=== PATIENT | female | born 1970 | race Caucasian/White ===

== ENCOUNTER → 2016-12-29 | Outpatient (CLI) | payer BC ==
[~2016-12-29] MED LIST: ASPIRIN CHILDRE81 MG PO; CIPRO500 MG PO; ENBREL50 MG/ML SC; ESTROVEN 155 M155 MG PO; IBU800 MG PO; MIRALAX POWDER255 GM PO; PRAVACHOL80 M1 PO; PROTONIX TR40 M1 PO; PROZAC40 M1 PO; REMERON15 M2 PO; Synthroid,Levo25 MCG PO; VICODIN 500 MG-1 TAB PO; XANAX0.5 MG PO
== END | disposition home or self-care (01) ==
LOC: MAMMO 09:33
DX: Z12.31 Encounter for screening mammogram for malignant neoplasm of breast (principal)

== ENCOUNTER → 2018-05-25 | Outpatient (CLI) | payer BC | END | disposition home or self-care (01) | LOC: MAMMO 08:48 | DX: Z12.31 Encounter for screening mammogram for malignant neoplasm of breast (principal) ==